=== PATIENT | male | born 1945 | race Caucasian/White ===

== ENCOUNTER 2018-11-29 22:33 | Inpatient (IN) | payer MEDICARE, OTHER ==
[2018-11-29 22:55] LABS: ABNORMAL IP MESSAGE 1; HEMATOCRIT 36.9 % (42.0-52.0); HEMOGLOBIN 11.9 g/dl (14.0-18.0); MEAN CORPUSCULAR HEMOGLOBIN 30.7 pg (29.0-33.0); MEAN CORPUSCULAR HGB CONC 32.2 g/dl (32.0-37.0); MEAN CORPUSCULAR VOLUME 95.1 fl (82.0-101.0); MEAN PLATELET VOLUME 10.9 fl (7.4-10.4); PLATELET COUNT 136 10^3/UL (140-415); POSITIVE DIFF @See below; RED BLOOD COUNT 3.88 10^6/ul (4.70-6.10); RED CELL DISTRIBUTION WIDTH 14.6 % (11.5-14.5)
[2018-11-29 22:55] LABS: WHITE BLOOD COUNT 26.8 10^3/ul (4.8-10.8)
[2018-11-29 22:56] LABS: ADD MAN DIFF? YES
[2018-11-29 23:15] LABS: INR 1.18; PROTIME 15.1 Sec (11.9-14.9); PT RATIO 1.2
[2018-11-29 23:16] LABS: PARTIAL THROMBOPLASTIN TIME 36.9 Sec (23.0-35.0)
[2018-11-29 23:18] LABS: ANION GAP 11 (5-13); BLOOD UREA NITROGEN 29 mg/dl (7-20); CALCIUM 8.9 mg/dl (8.4-10.2); CARBON DIOXIDE 30 mmol/L (21-31); CHLORIDE 95 mmol/L (97-110); CREATININE 3.06 mg/dl (0.61-1.24); GLUCOSE 103 mg/dl (70-220); SODIUM 136 mmol/L (135-144)
[2018-11-29 23:26] LABS: ANISOCYTOSIS 1+ (0-0); BAND NEUTROPHILS #M 3.4 10^3/ul (0.0-0.6); BAND NEUTROPHILS % (M) 13 % (0-4); EOSINOPHILS % (M) 2 % (0-7); GIANT THROMBO% (M) 1 % (0-0); LYMPHOCYTES #M 0.2 10^3/ul (0.8-2.9); LYMPHOCYTES % (M) 1 % (15-51); MONOCYTE #M 0.2 10^3/ul (0.3-0.9); MONOCYTES % (M) 1 % (0-11); PLATELET ESTIMATE DECREASED; POLYCHROMASIA 1+ (0-0); REACTIVE LYMPHOCYTES #M 0.2 10^3/ul (0.0-0.0); REACTIVE LYMPHOCYTES% (M) 1 % (0-0); SEG NEUT #M 22.9 10^3/ul (1.6-7.5); SEGMENTED NEUTROPHILS (M) % 82 % (39-77); TARGET CELLS 1+ (0-0)
[2018-11-29 23:31] LABS: TROPONIN-I 0.134 ng/ml (0.000-0.120)
[2018-11-29 23:41] LABS: AADO2 Arterial 110.7 mmHg (7.0-24.0); Arterial Base Excess 5.4 mmol/L (-3.0-3); Arterial Blood Gas Oxygen Sat 93.7 mmHG (95.0-100.0); Arterial COHb 0.9 % (0.0-3.0); Arterial Fraction of Oxyhgb 92.9 % (93.0-99.0); Arterial HCO3 30.4 mmol/L (22.0-26.0); Arterial MetHb 0 % (0.0-1.5); Arterial pCO2 46.7 mmhg (35-45); MODE NASAL CANNULA; Site Right Brachial
[2018-11-30] MEDS: ASPIRIN 81 MG TAB PO ×2 (00:16→11:17)
[2018-11-30] MEDS: PIPER-TAZO 2.25 GM (PMX) 50 ML IVPB ×4 (00:19→21:07)
[2018-11-30 00:20] LABS: ALANINE AMINOTRANSFERASE 63 IU/L (13-69); ALBUMIN 2.9 g/dl (3.3-4.9); ALKALINE PHOSPHATASE 402 IU/L (42-121); ASPARTATE AMINO TRANSFERASE 127 IU/L (15-46); BILIRUBIN,INDIRECT 0.7 mg/dl (0-1.1); BILIRUBIN,TOTAL 3.8 mg/dl (0.2-1.3); TOTAL PROTEIN 6.3 g/dl (6.1-8.1)
[2018-11-30] MEDS: VANCOMYCIN 1 GM (PMX) 250 ML IVPB (01:05)
[2018-11-30] MEDS: SOD CHLORIDE 0.9% 250 ML IV (02:00)
[2018-11-30] MEDS ORDERED: VANCOMYCIN IV PER PHARMACY XX (02:00)
[2018-11-30] MEDS ORDERED: NACL 0.9% 3 ML SYG IV (02:00)
[2018-11-30 02:51] LABS: LACTIC ACID 1.6 mmol/L (0.5-2.0)
[2018-11-30] MEDS: POTASSIUM CHLORIDE 50 ML IVPB (03:53)
[2018-11-30 05:46] LABS: ABNORMAL IP MESSAGE 1; HEMATOCRIT 33.5 % (42.0-52.0); HEMOGLOBIN 10.7 g/dl (14.0-18.0); MEAN CORPUSCULAR HEMOGLOBIN 30.9 pg (29.0-33.0); MEAN CORPUSCULAR HGB CONC 31.9 g/dl (32.0-37.0); MEAN CORPUSCULAR VOLUME 96.8 fl (82.0-101.0); MEAN PLATELET VOLUME 12.4 fl (7.4-10.4); NUCLEATED RED BLOOD CELLS% 0.1 /100WBC (0.0-0.0); PLATELET COUNT 130 10^3/UL (140-415); POSITIVE DIFF @See below; RED BLOOD COUNT 3.46 10^6/ul (4.70-6.10); RED CELL DISTRIBUTION WIDTH 14.7 % (11.5-14.5)
[2018-11-30 05:46] LABS: WHITE BLOOD COUNT 26.6 10^3/ul (4.8-10.8)
[2018-11-30 05:48] LABS: ADD MAN DIFF? YES
[2018-11-30] MEDS ORDERED: PIPER-TAZO 3.375 GM IV (PMX) 100 ML IVPB (06:00)
[2018-11-30 06:22] LABS: ALANINE AMINOTRANSFERASE 58 IU/L (13-69); ALBUMIN 2.4 g/dl (3.3-4.9); ALBUMIN/GLOBULIN RATIO 0.77; ALKALINE PHOSPHATASE 314 IU/L (42-121); ANION GAP 8 (5-13); ASPARTATE AMINO TRANSFERASE 108 IU/L (15-46); BILIRUBIN,INDIRECT 0.5 mg/dl (0-1.1); BILIRUBIN,TOTAL 3.6 mg/dl (0.2-1.3); BLOOD UREA NITROGEN 33 mg/dl (7-20); CALCIUM 8.5 mg/dl (8.4-10.2); CARBON DIOXIDE 31 mmol/L (21-31); CHLORIDE 97 mmol/L (97-110); CHOL/HDL RATIO 8.2 RATIO; CHOLESTEROL 99 mg/dl (100-200); CREATININE 3.21 mg/dl (0.61-1.24); GLUCOSE 89 mg/dl (70-220); HDL CHOLESTEROL 12 mg/dl (31-75); LDL CHOLESTEROL,CALCULATED 17 mg/dl; MAGNESIUM 2.1 mg/dl (1.7-2.5); POTASSIUM 3.4 mmol/L (3.5-5.1); SODIUM 136 mmol/L (135-144); TOTAL PROTEIN 5.5 g/dl (6.1-8.1); TRIGLYCERIDES 348 mg/dl (0-149)
[2018-11-30 06:23] LABS: LACTIC ACID 1.4 mmol/L (0.5-2.0)
[2018-11-30 06:32] LABS: CK-MB 0.51 ng/ml (0.0-2.4); TROPONIN-I 0.119 ng/ml (0.000-0.120)
[2018-11-30 06:44] LABS: CREATINE KINASE < 20 IU/L (23-200)
[2018-11-30 07:04] LABS: HEMOGLOBIN A1C 4.7 % (0-5.9)
[2018-11-30] MEDS: PANTOPRAZOLE (EC) 40 MG TAB PO (07:06)
[2018-11-30] MEDS: HEPARIN 5,000 UNIT/1 ML VIAL SC ×3 (07:06→21:33)
[2018-11-30] MEDS: HYDROCODONE/APAP (5/325) TAB PO ×2 (07:06→15:16)
[2018-11-30 07:45] LABS: ANISOCYTOSIS 1+ (0-0); BAND NEUTROPHILS #M 4.5 10^3/ul (0.0-0.6); BAND NEUTROPHILS % (M) 17 % (0-4); GIANT THROMBO% (M) 4 % (0-0); LYMPHOCYTES #M 1.5 10^3/ul (0.8-2.9); LYMPHOCYTES % (M) 6 % (15-51); MICROCYTOSIS 1+ (0-0); MONOCYTE #M 0.7 10^3/ul (0.3-0.9); MONOCYTES % (M) 3 % (0-11); PLATELET ESTIMATE DECREASED; POLYCHROMASIA 1+ (0-0); SEG NEUT #M 20.9 10^3/ul (1.6-7.5); SEGMENTED NEUTROPHILS (M) % 74 % (39-77); STOMATOCYTES 1+ (0-0); TARGET CELLS 1+ (0-0)
[2018-11-30] MEDS: NIFEdipine (XL) 60 MG TAB PO ×2 (09:00→21:00)
[2018-11-30 09:04] LABS: PROCALCITONIN 9.65 ng/mL (0.00-0.10)
[2018-11-30 10:03] LABS: CREATINE KINASE < 20 IU/L (23-200)
[2018-11-30 10:11] LABS: CK-MB 0.66 ng/ml (0.0-2.4); TROPONIN-I 0.113 ng/ml (0.000-0.120)
[2018-11-30 10:50] LABS: THYROID STIMULATING HORMONE 0.147 MIU/L (0.465-4.680)
[2018-11-30] MEDS: FOLIC ACID 1 MG TAB PO (11:05)
[2018-11-30] MEDS: FERROUS SULFATE (EC) 325 MG TAB PO ×2 (11:07→21:02)
[2018-11-30] MEDS: POTASSIUM CHLORIDE (SR) 20 MEQ TAB PO (13:17)
[2018-11-30] MEDS ORDERED: GLUCOSE GEL 15 GRAM TUBE BUCCAL (15:30)
[2018-11-30] MEDS ORDERED: GLUCAGON 1 MG INJ IM (15:30)
[2018-11-30] MEDS ORDERED: GLUCOSE GEL 15 GRAM TUBE PO ×2 (15:30)
[2018-11-30] MEDS ORDERED: DEXTROSE 50% 50 ML SYRINGE IV ×2 (15:30)
[2018-11-30] MEDS: INSULIN ASPART [NOVOLOG] 3 ML PEN SC ×2 (17:55→20:58)
[2018-11-30] MEDS: INSULIN GLARGINE [LANTus] (100 UNITS/ML) SYG SC (21:00)
[2018-11-30] MEDS: DOXAZOSIN 4 MG TAB PO (21:00)
[2018-11-30] MEDS: ATORVASTATIN 40 MG TAB PO (21:02)
[2018-11-30] MEDS: ZOLPIDEM 5 MG TAB PO (22:56)
[2018-12-01] MEDS: ACCU-CHEK XX (02:06)
[2018-12-01] MEDS: PANTOPRAZOLE (EC) 40 MG TAB PO (06:01)
[2018-12-01] MEDS: PIPER-TAZO 2.25 GM (PMX) 50 ML IVPB ×3 (06:01→22:02)
[2018-12-01] MEDS: HEPARIN 5,000 UNIT/1 ML VIAL SC ×3 (06:14→22:05)
[2018-12-01 06:31] LABS: WHITE BLOOD COUNT 29.1 10^3/ul (4.8-10.8)
[2018-12-01 06:31] LABS: ABNORMAL IP MESSAGE 1; HEMATOCRIT 32.3 % (42.0-52.0); HEMOGLOBIN 10.4 g/dl (14.0-18.0); MEAN CORPUSCULAR HGB CONC 32.2 g/dl (32.0-37.0); MEAN CORPUSCULAR VOLUME 96.1 fl (82.0-101.0); MEAN PLATELET VOLUME 11.6 fl (7.4-10.4); PLATELET COUNT 137 10^3/UL (140-415); POSITIVE DIFF @See below; RED BLOOD COUNT 3.36 10^6/ul (4.70-6.10); RED CELL DISTRIBUTION WIDTH 14.5 % (11.5-14.5)
[2018-12-01 06:51] LABS: ALANINE AMINOTRANSFERASE 58 IU/L (13-69); ALBUMIN 2.4 g/dl (3.3-4.9); ALBUMIN/GLOBULIN RATIO 0.82; ALKALINE PHOSPHATASE 306 IU/L (42-121); ANION GAP 10 (5-13); ASPARTATE AMINO TRANSFERASE 97 IU/L (15-46); BILIRUBIN,INDIRECT 0.6 mg/dl (0-1.1); BLOOD UREA NITROGEN 43 mg/dl (7-20); CALCIUM 8.8 mg/dl (8.4-10.2); CARBON DIOXIDE 28 mmol/L (21-31); CHLORIDE 97 mmol/L (97-110); CREATININE 4.65 mg/dl (0.61-1.24); GLUCOSE 131 mg/dl (70-220); MAGNESIUM 2.2 mg/dl (1.7-2.5); POTASSIUM 3.8 mmol/L (3.5-5.1); SODIUM 135 mmol/L (135-144); TOTAL PROTEIN 5.3 g/dl (6.1-8.1)
[2018-12-01 06:57] LABS: ADD MAN DIFF? YES
[2018-12-01] MEDS: INSULIN ASPART [NOVOLOG] 3 ML PEN SC ×4 (07:55→21:00)
[2018-12-01] MEDS: NIFEdipine (XL) 60 MG TAB PO ×2 (08:11→21:00)
[2018-12-01] MEDS: FOLIC ACID 1 MG TAB PO (09:00)
[2018-12-01] MEDS: ASPIRIN 81 MG TAB PO (09:00)
[2018-12-01] MEDS: FERROUS SULFATE (EC) 325 MG TAB PO ×2 (09:00→21:00)
[2018-12-01 09:07] LABS: HEPATITIS B SURFACE ANTIGEN NEGATIVE (NEGATIVE)
[2018-12-01 09:25] LABS: HEPATITIS B SURFACE ANTIBODY NEGATIVE (NEGATIVE)
[2018-12-01 09:31] LABS: ANISOCYTOSIS 1+ (0-0); BAND NEUTROPHILS #M 2.3 10^3/ul (0.0-0.6); BAND NEUTROPHILS % (M) 8 % (0-4); GIANT THROMBO% (M) 1 % (0-0); LYMPHOCYTES #M 0.2 10^3/ul (0.8-2.9); LYMPHOCYTES % (M) 1 % (15-51); MONOCYTE #M 0.8 10^3/ul (0.3-0.9); MONOCYTES % (M) 3 % (0-11); PLATELET ESTIMATE DECREASED; POLYCHROMASIA 1+ (0-0); REACTIVE LYMPHOCYTES #M 0.2 10^3/ul (0.0-0.0); REACTIVE LYMPHOCYTES% (M) 1 % (0-0); SEGMENTED NEUTROPHILS (M) % 87 % (39-77)
[2018-12-01] MEDS: EPOETIN ALFA-EPBX (ESRD) 4,000 UNIT/ML VIAL SC (17:52)
[2018-12-01 18:45] LABS: Arterial Base Excess 3.6 mmol/L (-3.0-3); Arterial Blood Gas Oxygen Sat 85.4 mmHG (95.0-100.0); Arterial COHb 0.4 % (0.0-3.0); Arterial Fraction of Oxyhgb 85.1 % (93.0-99.0); Arterial HCO3 28.1 mmol/L (22.0-26.0); Arterial MetHb 0 % (0.0-1.5); Arterial pCO2 41.9 mmhg (35-45); MODE NASAL CANNULA; Site Right Brachial
[2018-12-01] MEDS ORDERED: LEVALBUTEROL (NEB) 1.25 MG/0.5 ML AMP HHN (19:00)
[2018-12-01] MEDS: FUROSEMIDE 40 MG INJ IV (19:02)
[2018-12-01] MEDS: LORAZEPAM 2 MG INJ IV (19:05)
[2018-12-01] MEDS: IPRATROPIUM (NEB) 0.5 MG/2.5 ML AMP HHN (19:54)
[2018-12-01] MEDS: LEVALBUTEROL (NEB) 0.63 MG/3 ML AMP HHN (19:54)
[2018-12-01] MEDS: ATORVASTATIN 40 MG TAB PO (21:00)
[2018-12-01] MEDS: DOXAZOSIN 4 MG TAB PO (21:00)
[2018-12-01] MEDS: INSULIN GLARGINE [LANTus] (100 UNITS/ML) SYG SC (22:04)
[2018-12-01 23:28] LABS: AADO2 Arterial 321.5 mmHg (7.0-24.0); Arterial Base Excess 4.8 mmol/L (-3.0-3); Arterial Blood Gas Oxygen Sat 91.8 mmHG (95.0-100.0); Arterial COHb 0.2 % (0.0-3.0); Arterial Fraction of Oxyhgb 91.5 % (93.0-99.0); Arterial HCO3 28.7 mmol/L (22.0-26.0); Arterial MetHb 0.1 % (0.0-1.5); Arterial pCO2 40.1 mmhg (35-45); MODE HFNC; Site Right Radial
[2018-12-02] MEDS: BALSAM PERU/CASTOR OIL 60 GM TUBE TOP ×3 (00:40→21:02)
[2018-12-02] MEDS: IPRATROPIUM (NEB) 0.5 MG/2.5 ML AMP HHN ×4 (01:32→19:39)
[2018-12-02] MEDS: LEVALBUTEROL (NEB) 0.63 MG/3 ML AMP HHN ×4 (01:32→19:39)
[2018-12-02] MEDS: ACETYLCYSTEINE 20% 4 ML VIAL NEB ×4 (01:32→19:39)
[2018-12-02] MEDS: ACCU-CHEK XX (02:30)
[2018-12-02 05:21] LABS: WHITE BLOOD COUNT 25.4 10^3/ul (4.8-10.8)
[2018-12-02 05:21] LABS: ABNORMAL IP MESSAGE 1; HEMATOCRIT 29.9 % (42.0-52.0); HEMOGLOBIN 9.6 g/dl (14.0-18.0); MEAN CORPUSCULAR HEMOGLOBIN 31.3 pg (29.0-33.0); MEAN CORPUSCULAR HGB CONC 32.1 g/dl (32.0-37.0); MEAN CORPUSCULAR VOLUME 97.4 fl (82.0-101.0); MEAN PLATELET VOLUME 11.4 fl (7.4-10.4); PLATELET COUNT 122 10^3/UL (140-415); POSITIVE DIFF @See below; RED BLOOD COUNT 3.07 10^6/ul (4.70-6.10); RED CELL DISTRIBUTION WIDTH 14.6 % (11.5-14.5)
[2018-12-02 05:24] LABS: ADD MAN DIFF? YES
[2018-12-02 05:58] LABS: VANCOMYCIN,RANDOM 6.9 ug/ml
[2018-12-02] MEDS: PANTOPRAZOLE (EC) 40 MG TAB PO (06:00)
[2018-12-02 06:03] LABS: ALANINE AMINOTRANSFERASE 59 IU/L (13-69); ALBUMIN 2.2 g/dl (3.3-4.9); ALBUMIN/GLOBULIN RATIO 0.73; ALKALINE PHOSPHATASE 354 IU/L (42-121); ANION GAP 8 (5-13); ASPARTATE AMINO TRANSFERASE 125 IU/L (15-46); BILIRUBIN,INDIRECT 0.8 mg/dl (0-1.1); BILIRUBIN,TOTAL 5.6 mg/dl (0.2-1.3); BLOOD UREA NITROGEN 26 mg/dl (7-20); CALCIUM 8.9 mg/dl (8.4-10.2); CARBON DIOXIDE 30 mmol/L (21-31); CHLORIDE 104 mmol/L (97-110); CREATININE 3.42 mg/dl (0.61-1.24); GLUCOSE 94 mg/dl (70-220); SODIUM 142 mmol/L (135-144); TOTAL PROTEIN 5.2 g/dl (6.1-8.1)
[2018-12-02] MEDS: PIPER-TAZO 2.25 GM (PMX) 50 ML IVPB ×2 (06:09→13:51)
[2018-12-02] MEDS: HEPARIN 5,000 UNIT/1 ML VIAL SC ×3 (06:10→21:16)
[2018-12-02] MEDS ORDERED: ETOMIDATE 20 MG INJ (07:00)
[2018-12-02] MEDS ORDERED: SUCCINYLCHOLINE CHLORIDE 100 MG/5 ML SYG IV (07:00)
[2018-12-02] MEDS: INSULIN ASPART [NOVOLOG] 3 ML PEN SC ×3 (07:55→21:00)
[2018-12-02 08:01] LABS: ANISOCYTOSIS 1+ (0-0); BAND NEUTROPHILS #M 0.5 10^3/ul (0.0-0.6); BAND NEUTROPHILS % (M) 2 % (0-4); EOSINOPHILS % (M) 2 % (0-7); GIANT THROMBO% (M) 1 % (0-0); LYMPHOCYTES #M 0.7 10^3/ul (0.8-2.9); LYMPHOCYTES % (M) 3 % (15-51); MONOCYTE #M 0.5 10^3/ul (0.3-0.9); MONOCYTES % (M) 2 % (0-11); PLATELET ESTIMATE DECREASED; REACTIVE LYMPHOCYTES #M 0.2 10^3/ul (0.0-0.0); REACTIVE LYMPHOCYTES% (M) 1 % (0-0); SEGMENTED NEUTROPHILS (M) % 90 % (39-77); SMUDGE%M 4 % (0-0)
[2018-12-02] MEDS: ASPIRIN 81 MG TAB PO (09:00)
[2018-12-02] MEDS: FOLIC ACID 1 MG TAB PO (09:00)
[2018-12-02] MEDS: NIFEdipine (XL) 60 MG TAB PO (09:00)
[2018-12-02] MEDS: FERROUS SULFATE (EC) 325 MG TAB PO ×2 (09:00→21:00)
[2018-12-02] MEDS: FUROSEMIDE 40 MG INJ IV (09:41)
[2018-12-02 12:22] LABS: HAAIG REFLEX REFLEX FILED
[2018-12-02 12:40] LABS: LACTIC ACID 1.8 mmol/L (0.5-2.0); LIPASE 75 U/L (23-300)
[2018-12-02 13:13] LABS: HEPATITIS B SURFACE ANTIGEN NEGATIVE (NEGATIVE)
[2018-12-02 13:31] LABS: HEPATITIS B CORE ANTIBODY NEGATIVE (NEGATIVE); HEPATITIS C VIRAL ANTIBODY NEGATIVE (NEGATIVE)
[2018-12-02] MEDS: HYDROCODONE/APAP (5/325) TAB PO (13:40)
[2018-12-02] MEDS: VANCOMYCIN 1 GM 250 ML IVPB (14:25)
[2018-12-02 15:22] LABS: AADO2 Arterial 284.9 mmHg (7.0-24.0); Allen Test ACCEPTAB; Arterial Base Excess 5.7 mmol/L (-3.0-3); Arterial Blood Gas Oxygen Sat 89.4 mmHG (95.0-100.0); Arterial COHb 0.3 % (0.0-3.0); Arterial HCO3 30.4 mmol/L (22.0-26.0); Arterial MetHb 0.1 % (0.0-1.5); Arterial pCO2 45.3 mmhg (35-45); MODE HFNC; Site Left Radial
[2018-12-02] MEDS ORDERED: FENTAnyl 50 MCG/ML VIAL (17:16)
[2018-12-02] MEDS ORDERED: ALBUMIN HUMAN 25% 100 ML (17:37)
[2018-12-02] MEDS: AZITHROMYCIN 250 MG in SOD CHLORIDE 0.9% 250 ML IVPB (18:19)
[2018-12-02] MEDS: FENTAnyl (DRIP) 1000 mcg/100mL 100 ML IV (18:20)
[2018-12-02] MEDS: FENTAnyl 50 MCG/ML VIAL IV (18:21)
[2018-12-02] MEDS: ALBUMIN HUMAN 25% 100 ML IV (18:22)
[2018-12-02] MEDS: PROPOFOL 100 ML IV ×2 (18:27→22:45)
[2018-12-02 18:45] LABS: AADO2 Arterial 365.9 mmHg (7.0-24.0); Allen Test ACCEPTAB; Arterial Base Excess 4.2 mmol/L (-3.0-3); Arterial Blood Gas Oxygen Sat 96.6 mmHG (95.0-100.0); Arterial COHb 0.3 % (0.0-3.0); Arterial Fraction of Oxyhgb 96.2 % (93.0-99.0); Arterial HCO3 28.3 mmol/L (22.0-26.0); Arterial MetHb 0.1 % (0.0-1.5); Arterial pCO2 40.2 mmhg (35-45); MODE VENT - AC; Site Right Radial
[2018-12-02] MEDS: ALBUTEROL HFA 8 GM INHALER INH (20:00)
[2018-12-02] MEDS: IPRATROPIUM (HFA) 12.9 GM INHALER INH (20:00)
[2018-12-02] MEDS ORDERED: FAMOTIDINE 20 MG INJ IV (20:30)
[2018-12-02] MEDS: DOXAZOSIN 4 MG TAB PO (21:00)
[2018-12-02] MEDS: ATORVASTATIN 40 MG TAB PO (21:00)
[2018-12-02] MEDS ORDERED: MEROPENEM 1 GM/50ML(PMX) 50 ML IVPB (21:00)
[2018-12-02] MEDS: NORepinephrine 8MG/250 ML (PMX 250 ML IV (21:06)
[2018-12-02] MEDS: MEROPENEM 500MG/50 ML (PMX) 50 ML IVPB (21:15)
[2018-12-03] MEDS: INSULIN ASPART [NOVOLOG] 3 ML PEN SC ×6 (01:00→21:00)
[2018-12-03] MEDS: IPRATROPIUM (HFA) 12.9 GM INHALER INH ×4 (01:20→20:19)
[2018-12-03] MEDS: ALBUTEROL HFA 8 GM INHALER INH ×4 (01:20→20:18)
[2018-12-03] MEDS: ACETYLCYSTEINE 20% 4 ML VIAL NEB ×4 (01:20→20:18)
[2018-12-03] MEDS ORDERED: FAMOTIDINE 20 MG INJ (01:21)
[2018-12-03 04:39] LABS: AADO2 Arterial 238.4 mmHg (7.0-24.0); Allen Test ACCEPTAB; Arterial Base Excess 1.2 mmol/L (-3.0-3); Arterial Blood Gas Oxygen Sat 95.3 mmHG (95.0-100.0); Arterial COHb 0.1 % (0.0-3.0); Arterial Fraction of Oxyhgb 95.1 % (93.0-99.0); Arterial HCO3 24.6 mmol/L (22.0-26.0); Arterial MetHb 0.1 % (0.0-1.5); Arterial pCO2 34.2 mmhg (35-45); MODE VENT - AC; Site Right Radial
[2018-12-03] MEDS: VASOPRESSIN 60 UNIT in DEXTROSE 5% 57 ML IV ×2 (04:54→14:21)
[2018-12-03] MEDS: MEROPENEM 500MG/50 ML (PMX) 50 ML IVPB ×2 (04:55→17:57)
[2018-12-03] MEDS: FAMOTIDINE 20 MG INJ IV (05:01)
[2018-12-03] MEDS: HEPARIN 5,000 UNIT/1 ML VIAL SC ×3 (05:03→21:42)
[2018-12-03 05:23] LABS: ABNORMAL IP MESSAGE 1; HEMOGLOBIN 9.4 g/dl (14.0-18.0); MEAN CORPUSCULAR HEMOGLOBIN 31.6 pg (29.0-33.0); MEAN CORPUSCULAR HGB CONC 32.4 g/dl (32.0-37.0); MEAN CORPUSCULAR VOLUME 97.6 fl (82.0-101.0); NUCLEATED RED BLOOD CELLS% 0.1 /100WBC (0.0-0.0); PLATELET COUNT 113 10^3/UL (140-415); POSITIVE DIFF @See below; RED BLOOD COUNT 2.97 10^6/ul (4.70-6.10); RED CELL DISTRIBUTION WIDTH 14.7 % (11.5-14.5)
[2018-12-03 05:23] LABS: WHITE BLOOD COUNT 25.7 10^3/ul (4.8-10.8)
[2018-12-03 05:24] LABS: ADD MAN DIFF? YES
[2018-12-03 05:39] LABS: LACTIC ACID 1.8 mmol/L (0.5-2.0)
[2018-12-03 05:47] LABS: ALANINE AMINOTRANSFERASE 54 IU/L (13-69); ALBUMIN 2.2 g/dl (3.3-4.9); ALBUMIN/GLOBULIN RATIO 0.78; ALKALINE PHOSPHATASE 264 IU/L (42-121); ANION GAP 12 (5-13); ASPARTATE AMINO TRANSFERASE 105 IU/L (15-46); BILIRUBIN,TOTAL 6.9 mg/dl (0.2-1.3); BLOOD UREA NITROGEN 37 mg/dl (7-20); CALCIUM 8.9 mg/dl (8.4-10.2); CARBON DIOXIDE 25 mmol/L (21-31); CHLORIDE 105 mmol/L (97-110); CREATININE 4.34 mg/dl (0.61-1.24); GLUCOSE 64 mg/dl (70-220); POTASSIUM 3.9 mmol/L (3.5-5.1); SODIUM 142 mmol/L (135-144)
[2018-12-03] MEDS ORDERED: PANTOPRAZOLE 40 MG INJ IV (06:00)
[2018-12-03] MEDS: PROPOFOL 100 ML IV ×2 (06:23→19:19)
[2018-12-03] MEDS: NORepinephrine 8MG/250 ML (PMX 250 ML IV ×3 (06:25→21:45)
[2018-12-03 07:27] LABS: ANISOCYTOSIS 1+ (0-0); BAND NEUTROPHILS % (M) 8 % (0-4); BASOPHIL #M 0.2 10^3/ul (0.0-0.0); BASOPHILS % (M) 1 % (0-2); BURR CELLS 1+ (0-0); EOSINOPHILS % (M) 4 % (0-7); GIANT THROMBO% (M) 9 % (0-0); LYMPHOCYTES #M 2.8 10^3/ul (0.8-2.9); LYMPHOCYTES % (M) 11 % (15-51); PLATELET ESTIMATE DECREASED; POIKILOCYTOSIS 1+ (0-0); POLYCHROMASIA 1+ (0-0); SEGMENTED NEUTROPHILS (M) % 76 % (39-77); SMUDGE%M 9 % (0-0)
[2018-12-03] MEDS: ASPIRIN 81 MG TAB PO (08:05)
[2018-12-03] MEDS: ACETAMINOPHEN 325 MG TAB PO (08:05)
[2018-12-03] MEDS: FOLIC ACID 1 MG TAB PO (08:05)
[2018-12-03] MEDS: FERROUS SULFATE (EC) 325 MG TAB PO ×2 (08:05→21:40)
[2018-12-03] MEDS: BALSAM PERU/CASTOR OIL 60 GM TUBE TOP ×2 (08:06→21:41)
[2018-12-03] MEDS: ALBUMIN HUMAN 25% 100 ML IV (09:35)
[2018-12-03] MEDS: FENTAnyl (DRIP) 1000 mcg/100mL 100 ML IV (10:41)
[2018-12-03] MEDS: CASPOFUNGIN 70 MG in SOD CHLORIDE 0.9% 250 ML IVPB (14:36)
[2018-12-03] MEDS: AZITHROMYCIN 250 MG in SOD CHLORIDE 0.9% 250 ML IVPB (16:44)
[2018-12-03] MEDS: DOXAZOSIN 4 MG TAB PO (21:00)
[2018-12-03] MEDS: ATORVASTATIN 40 MG TAB PO (21:40)
[2018-12-04] MEDS: INSULIN ASPART [NOVOLOG] 3 ML PEN SC ×6 (01:00→20:45)
[2018-12-04] MEDS: IPRATROPIUM (HFA) 12.9 GM INHALER INH ×4 (01:41→19:34)
[2018-12-04] MEDS: ALBUTEROL HFA 8 GM INHALER INH ×4 (01:41→19:35)
[2018-12-04] MEDS: ACETYLCYSTEINE 20% 4 ML VIAL NEB ×4 (01:41→19:35)
[2018-12-04] MEDS: PROPOFOL 100 ML IV ×2 (03:33→14:44)
[2018-12-04] MEDS: FENTAnyl (DRIP) 1000 mcg/100mL 100 ML IV (03:34)
[2018-12-04] MEDS: VASOPRESSIN 60 UNIT in DEXTROSE 5% 57 ML IV ×2 (03:39→14:30)
[2018-12-04] MEDS: METOCLOPRAMIDE 10 MG INJ IV ×2 (03:43→15:21)
[2018-12-04] MEDS: MEROPENEM 500MG/50 ML (PMX) 50 ML IVPB ×2 (05:33→18:15)
[2018-12-04] MEDS: NORepinephrine 8MG/250 ML (PMX 250 ML IV ×3 (05:33→21:15)
[2018-12-04] MEDS: FAMOTIDINE 20 MG INJ IV (05:33)
[2018-12-04] MEDS: HEPARIN 5,000 UNIT/1 ML VIAL SC ×3 (05:34→20:46)
[2018-12-04 05:49] LABS: ABNORMAL IP MESSAGE 1; HEMATOCRIT 29.5 % (42.0-52.0); HEMOGLOBIN 9.4 g/dl (14.0-18.0); MEAN CORPUSCULAR HEMOGLOBIN 31.9 pg (29.0-33.0); MEAN CORPUSCULAR HGB CONC 31.9 g/dl (32.0-37.0); MEAN PLATELET VOLUME 11.7 fl (7.4-10.4); NUCLEATED RED BLOOD CELLS% 0.2 /100WBC (0.0-0.0); PLATELET COUNT 86 10^3/UL (140-415); POSITIVE DIFF @See below; RED BLOOD COUNT 2.95 10^6/ul (4.70-6.10); RED CELL DISTRIBUTION WIDTH 14.7 % (11.5-14.5)
[2018-12-04 05:49] LABS: WHITE BLOOD COUNT 24.6 10^3/ul (4.8-10.8)
[2018-12-04 05:54] LABS: ADD MAN DIFF? YES
[2018-12-04 06:26] LABS: ANION GAP 12 (5-13); BLOOD UREA NITROGEN 24 mg/dl (7-20); CALCIUM 9.3 mg/dl (8.4-10.2); CARBON DIOXIDE 25 mmol/L (21-31); CHLORIDE 104 mmol/L (97-110); GLUCOSE 80 mg/dl (70-220); MAGNESIUM 2.1 mg/dl (1.7-2.5); PHOSPHORUS 3.9 mg/dl (2.5-4.9); POTASSIUM 4.1 mmol/L (3.5-5.1); SODIUM 141 mmol/L (135-144)
[2018-12-04] MEDS: BALSAM PERU/CASTOR OIL 60 GM TUBE TOP ×2 (08:01→20:42)
[2018-12-04] MEDS: ASPIRIN 81 MG TAB PO (08:02)
[2018-12-04] MEDS: FERROUS SULFATE (EC) 325 MG TAB PO ×2 (08:02→20:42)
[2018-12-04] MEDS: FOLIC ACID 1 MG TAB PO (08:02)
[2018-12-04 08:12] LABS: Allen Test ACCEPTAB; Arterial Base Excess -0.3 mmol/L (-3.0-3); Arterial Blood Gas Oxygen Sat 92.1 mmHG (95.0-100.0); Arterial COHb 0.3 % (0.0-3.0); Arterial Fraction of Oxyhgb 91.8 % (93.0-99.0); Arterial HCO3 24.8 mmol/L (22.0-26.0); Arterial MetHb 0 % (0.0-1.5); Arterial pCO2 42.5 mmhg (35-45); MODE VENT - AC; Site Right Radial
[2018-12-04 09:25] LABS: ANISOCYTOSIS 2+ (0-0); BAND NEUTROPHILS #M 0.9 10^3/ul (0.0-0.6); BAND NEUTROPHILS % (M) 4 % (0-4); BASOPHIL #M 0.4 10^3/ul (0.0-0.0); BASOPHILS % (M) 2 % (0-2); BURR CELLS 1+ (0-0); EOSINOPHILS % (M) 5 % (0-7); LYMPHOCYTES #M 0.4 10^3/ul (0.8-2.9); LYMPHOCYTES % (M) 2 % (15-51); MONOCYTE #M 0.2 10^3/ul (0.3-0.9); MONOCYTES % (M) 1 % (0-11); PLATELET ESTIMATE DECREASED; POIKILOCYTOSIS 3+ (0-0); POLYCHROMASIA 3+ (0-0); SEG NEUT #M 21.4 10^3/ul (1.6-7.5); SEGMENTED NEUTROPHILS (M) % 86 % (39-77); SMUDGE%M 17 % (0-0)
[2018-12-04] MEDS: AMIODARONE 150MG/D5W BOLUS 100 ML IV (10:28)
[2018-12-04] MEDS ORDERED: AMIODARONE 150MG/D5W BOLUS 100 ML IV (10:30)
[2018-12-04] MEDS: AMIODARONE 900 MG in DEXTROSE 5% 482 ML IV (11:32)
[2018-12-04 13:18] LABS: ALANINE AMINOTRANSFERASE 46 IU/L (13-69); ALBUMIN 2.6 g/dl (3.3-4.9); ALKALINE PHOSPHATASE 234 IU/L (42-121); ASPARTATE AMINO TRANSFERASE 109 IU/L (15-46); BILIRUBIN,INDIRECT 0.9 mg/dl (0-1.1); BILIRUBIN,TOTAL 7.3 mg/dl (0.2-1.3); TOTAL PROTEIN 5.8 g/dl (6.1-8.1)
[2018-12-04 13:20] LABS: INR 1.41; PROTIME 17.4 Sec (11.9-14.9); PT RATIO 1.4
[2018-12-04] MEDS: CASPOFUNGIN 35 MG in SOD CHLORIDE 0.9% 250 ML IVPB (15:20)
[2018-12-04] MEDS ORDERED: LACTULOSE 30ML CUP PO (18:30)
[2018-12-04] MEDS: EPOETIN ALFA-EPBX (ESRD) 4,000 UNIT/ML VIAL SC (20:38)
[2018-12-04] MEDS: ATORVASTATIN 40 MG TAB PO (20:42)
[2018-12-04] MEDS: DOCUSATE SODIUM 10 MG/ML (10ML CUP) NGT (20:42)
[2018-12-04] MEDS: COLLAGENASE 5 GM (UD JAR) TOP (20:42)
[2018-12-05] MEDS: PROPOFOL 100 ML IV ×2 (00:27→23:00)
[2018-12-05] MEDS: INSULIN ASPART [NOVOLOG] 3 ML PEN SC ×6 (00:33→20:53)
[2018-12-05] MEDS: FENTAnyl (DRIP) 1000 mcg/100mL 100 ML IV ×2 (00:34→21:11)
[2018-12-05] MEDS: IPRATROPIUM (HFA) 12.9 GM INHALER INH ×4 (01:42→19:43)
[2018-12-05] MEDS: ALBUTEROL HFA 8 GM INHALER INH ×4 (01:42→19:43)
[2018-12-05] MEDS: ACETYLCYSTEINE 20% 4 ML VIAL NEB (01:43)
[2018-12-05] MEDS: VASOPRESSIN 60 UNIT in DEXTROSE 5% 57 ML IV ×2 (02:30→05:05)
[2018-12-05] MEDS: NORepinephrine 8MG/250 ML (PMX 250 ML IV ×3 (04:05→21:50)
[2018-12-05] MEDS: MEROPENEM 500MG/50 ML (PMX) 50 ML IVPB ×2 (04:57→17:59)
[2018-12-05] MEDS: FAMOTIDINE 20 MG INJ IV (05:05)
[2018-12-05] MEDS: HEPARIN 5,000 UNIT/1 ML VIAL SC ×3 (05:10→21:01)
[2018-12-05 05:12] LABS: ADD MAN DIFF? NO
[2018-12-05 05:16] LABS: ABNORMAL IP MESSAGE 1; BASOPHIL # 0.3 10^3/ul (0.0-0.1); BASOPHILS % 1.2 % (0.0-2.0); EOSINOPHILS # 0.6 10^3/ul (0.0-0.5); EOSINOPHILS % 2.8 % (0.0-7.0); HEMATOCRIT 29.2 % (42.0-52.0); HEMOGLOBIN 9.3 g/dl (14.0-18.0); LYMPHOCYTES # 1.9 10^3/ul (0.8-2.9); LYMPHOCYTES % 8.2 % (15.0-51.0); MEAN CORPUSCULAR HEMOGLOBIN 31.7 pg (29.0-33.0); MEAN CORPUSCULAR HGB CONC 31.8 g/dl (32.0-37.0); MEAN CORPUSCULAR VOLUME 99.7 fl (82.0-101.0); MEAN PLATELET VOLUME 12.7 fl (7.4-10.4); MONOCYTE # 0.8 10^3/ul (0.3-0.9); MONOCYTES % 3.4 % (0.0-11.0); NEUTROPHIL # 18.6 10^3/ul (1.6-7.5); NEUTROPHILS % 81.4 % (39.0-77.0); NUCLEATED RED BLOOD CELLS # 0.1 10^3/ul (0.0-0.0); NUCLEATED RED BLOOD CELLS% 0.3 /100WBC (0.0-0.0); PLATELET COUNT 93 10^3/UL (140-415); POSITIVE DIFF @See below; RED BLOOD COUNT 2.93 10^6/ul (4.70-6.10); RED CELL DISTRIBUTION WIDTH 15.1 % (11.5-14.5)
[2018-12-05 05:16] LABS: WHITE BLOOD COUNT 22.8 10^3/ul (4.8-10.8)
[2018-12-05 05:49] LABS: AMMONIA 34 umol/l (9-30)
[2018-12-05 05:59] LABS: VANCOMYCIN,RANDOM 8.3 ug/ml
[2018-12-05 06:08] LABS: ANION GAP 12 (5-13); BLOOD UREA NITROGEN 33 mg/dl (7-20); CALCIUM 8.9 mg/dl (8.4-10.2); CARBON DIOXIDE 23 mmol/L (21-31); CHLORIDE 103 mmol/L (97-110); GLUCOSE 152 mg/dl (70-220); POTASSIUM 4.7 mmol/L (3.5-5.1); SODIUM 138 mmol/L (135-144)
[2018-12-05 06:15] LABS: CREATININE 4.15 mg/dl (0.61-1.24)
[2018-12-05] MEDS: COLLAGENASE 5 GM (UD JAR) TOP ×2 (08:17→20:53)
[2018-12-05] MEDS: FERROUS SULFATE (EC) 325 MG TAB PO ×2 (08:17→20:52)
[2018-12-05] MEDS: ASPIRIN 81 MG TAB PO (08:17)
[2018-12-05] MEDS: FOLIC ACID 1 MG TAB PO (08:17)
[2018-12-05] MEDS: DOCUSATE SODIUM 10 MG/ML (10ML CUP) NGT ×2 (08:17→20:52)
[2018-12-05] MEDS: BALSAM PERU/CASTOR OIL 60 GM TUBE TOP ×2 (08:17→20:54)
[2018-12-05] MEDS: ACETAMINOPHEN 325 MG TAB PO (08:28)
[2018-12-05] MEDS: METOCLOPRAMIDE 10 MG INJ IV ×3 (08:40→20:52)
[2018-12-05] MEDS: DEXMEDETOMIDINE HCL 200 MCG in SOD CHLORIDE 0.9% 48 ML IV ×2 (10:04→18:02)
[2018-12-05] MEDS ORDERED: ALBUMIN HUMAN 25% 100 ML (11:05)
[2018-12-05] MEDS: ALBUMIN HUMAN 25% 100 ML IV (11:21)
[2018-12-05 13:22] LABS: MITOCHONDRIAL TB NEGATIVE (NEGATIVE); SMOOTH MUSCLE AB SCREEN NEGATIVE (NEGATIVE)
[2018-12-05 13:26] LABS: Allen Test ACCEPTAB
[2018-12-05] MEDS: AMIODARONE 200 MG TAB PO ×2 (14:18→20:53)
[2018-12-05] MEDS: CASPOFUNGIN 35 MG in SOD CHLORIDE 0.9% 250 ML IVPB (15:40)
[2018-12-05] MEDS: metroNIDAZOLE 500 MG/NS (PMX) 100 ML IVPB ×2 (17:00→21:08)
[2018-12-05] MEDS: VANCOMYCIN HCL 1.25 GM in SOD CHLORIDE 0.9% 250 ML IVPB (17:59)
[2018-12-05 19:37] LABS: ANA SCREEN POSITIVE (NEGATIVE)
[2018-12-05] MEDS: ATORVASTATIN 40 MG TAB PO (20:53)
[2018-12-06] MEDS: INSULIN ASPART [NOVOLOG] 3 ML PEN SC ×6 (01:00→20:16)
[2018-12-06] MEDS: METOCLOPRAMIDE 10 MG INJ IV ×4 (01:15→20:10)
[2018-12-06] MEDS: IPRATROPIUM (HFA) 12.9 GM INHALER INH ×4 (01:37→19:47)
[2018-12-06] MEDS: ALBUTEROL HFA 8 GM INHALER INH ×4 (01:37→19:47)
[2018-12-06] MEDS: VASOPRESSIN 60 UNIT in DEXTROSE 5% 57 ML IV ×2 (02:30→14:30)
[2018-12-06] MEDS: metroNIDAZOLE 500 MG/NS (PMX) 100 ML IVPB ×3 (02:58→14:58)
[2018-12-06] MEDS: MEROPENEM 500MG/50 ML (PMX) 50 ML IVPB ×2 (05:28→18:05)
[2018-12-06] MEDS: FAMOTIDINE 20 MG INJ IV (05:29)
[2018-12-06] MEDS: HEPARIN 5,000 UNIT/1 ML VIAL SC (05:29)
[2018-12-06 05:56] LABS: ABNORMAL IP MESSAGE 1; HEMATOCRIT 25.8 % (42.0-52.0); HEMOGLOBIN 8.1 g/dl (14.0-18.0); MEAN CORPUSCULAR HEMOGLOBIN 31.4 pg (29.0-33.0); MEAN CORPUSCULAR HGB CONC 31.4 g/dl (32.0-37.0); MEAN PLATELET VOLUME 12.3 fl (7.4-10.4); NUCLEATED RED BLOOD CELLS% 0.1 /100WBC (0.0-0.0); PLATELET COUNT 71 10^3/UL (140-415); POSITIVE DIFF @See below; RED BLOOD COUNT 2.58 10^6/ul (4.70-6.10); RED CELL DISTRIBUTION WIDTH 14.9 % (11.5-14.5)
[2018-12-06 05:56] LABS: WHITE BLOOD COUNT 18.5 10^3/ul (4.8-10.8)
[2018-12-06 06:14] LABS: ADD MAN DIFF? YES
[2018-12-06 06:31] LABS: ANION GAP 10 (5-13)
[2018-12-06 06:32] LABS: BLOOD UREA NITROGEN 24 mg/dl (7-20); CARBON DIOXIDE 25 mmol/L (21-31); CHLORIDE 104 mmol/L (97-110); CREATININE 3.03 mg/dl (0.61-1.24); GLUCOSE 132 mg/dl (70-220); POTASSIUM 4.1 mmol/L (3.5-5.1); SODIUM 139 mmol/L (135-144)
[2018-12-06 06:33] LABS: CALCIUM 8.6 mg/dl (8.4-10.2)
[2018-12-06] MEDS: DEXMEDETOMIDINE HCL 200 MCG in SOD CHLORIDE 0.9% 48 ML IV (06:46)
[2018-12-06] MEDS: NORepinephrine 8MG/250 ML (PMX 250 ML IV ×2 (06:47→13:46)
[2018-12-06 08:51] LABS: ANISOCYTOSIS 2+ (0-0); BAND NEUTROPHILS #M 0.5 10^3/ul (0.0-0.6); BAND NEUTROPHILS % (M) 3 % (0-4); BASOPHIL #M 0.3 10^3/ul (0.0-0.0); BASOPHILS % (M) 2 % (0-2); BURR CELLS 1+ (0-0); EOSINOPHILS % (M) 5 % (0-7); GIANT THROMBO% (M) 2 % (0-0); LYMPHOCYTES #M 0.9 10^3/ul (0.8-2.9); LYMPHOCYTES % (M) 5 % (15-51); MONOCYTE #M 0.7 10^3/ul (0.3-0.9); MONOCYTES % (M) 4 % (0-11); MYELOCYTES #M 0.3 10^3/ul (0.0-0.0); MYELOCYTES % (M) 2 % (0-0); PLATELET ESTIMATE DECREASED; POIKILOCYTOSIS 2+ (0-0); POLYCHROMASIA 1+ (0-0); SEG NEUT #M 14.7 10^3/ul (1.6-7.5); SEGMENTED NEUTROPHILS (M) % 79 % (39-77); SPHEROCYTES 1+ (0-0)
[2018-12-06 09:31] LABS: ALANINE AMINOTRANSFERASE 44 IU/L (13-69); ALBUMIN 2.3 g/dl (3.3-4.9); ALKALINE PHOSPHATASE 225 IU/L (42-121); ASPARTATE AMINO TRANSFERASE 124 IU/L (15-46); BILIRUBIN,INDIRECT 0.9 mg/dl (0-1.1); BILIRUBIN,TOTAL 6.7 mg/dl (0.2-1.3); TOTAL PROTEIN 4.9 g/dl (6.1-8.1)
[2018-12-06] MEDS: LACTULOSE 30ML CUP PO ×2 (09:38→20:10)
[2018-12-06] MEDS: AMIODARONE 200 MG TAB PO ×3 (09:39→20:11)
[2018-12-06] MEDS: ASPIRIN 81 MG TAB PO (09:40)
[2018-12-06] MEDS: DOCUSATE SODIUM 10 MG/ML (10ML CUP) NGT ×2 (09:40→20:10)
[2018-12-06] MEDS: FOLIC ACID 1 MG TAB PO (09:41)
[2018-12-06] MEDS: FERROUS SULFATE (EC) 325 MG TAB PO ×2 (09:41→20:11)
[2018-12-06] MEDS: COLLAGENASE 5 GM (UD JAR) TOP ×2 (09:51→20:11)
[2018-12-06] MEDS: BALSAM PERU/CASTOR OIL 60 GM TUBE TOP ×2 (09:52→20:11)
[2018-12-06] MEDS: PROPOFOL 100 ML IV ×2 (11:00→22:27)
[2018-12-06] MEDS: CASPOFUNGIN 35 MG in SOD CHLORIDE 0.9% 250 ML IVPB (15:45)
[2018-12-06] MEDS: EPOETIN ALFA-EPBX (ESRD) 4,000 UNIT/ML VIAL SC (18:05)
[2018-12-06] MEDS: MINERAL OIL 133 ML ENEMA PR (18:26)
[2018-12-06] MEDS: ATORVASTATIN 40 MG TAB PO (20:11)
[2018-12-06 21:13] LABS: ANA PATTERN HOMOGENEOUS
[2018-12-07] MEDS: INSULIN ASPART [NOVOLOG] 3 ML PEN SC ×6 (00:28→20:53)
[2018-12-07] MEDS: METOCLOPRAMIDE 10 MG INJ IV ×4 (00:29→17:23)
[2018-12-07] MEDS: NORepinephrine 8MG/250 ML (PMX 250 ML IV ×3 (00:31→21:31)
[2018-12-07] MEDS: ALBUTEROL HFA 8 GM INHALER INH ×4 (01:46→20:03)
[2018-12-07] MEDS: IPRATROPIUM (HFA) 12.9 GM INHALER INH ×4 (01:46→20:03)
[2018-12-07] MEDS: VASOPRESSIN 60 UNIT in DEXTROSE 5% 57 ML IV ×2 (02:30→14:30)
[2018-12-07 05:05] LABS: ADD MAN DIFF? NO
[2018-12-07 05:10] LABS: ABNORMAL IP MESSAGE 1; BASOPHIL # 0.3 10^3/ul (0.0-0.1); BASOPHILS % 1.3 % (0.0-2.0); EOSINOPHILS # 0.7 10^3/ul (0.0-0.5); HEMATOCRIT 26.4 % (42.0-52.0); HEMOGLOBIN 8.3 g/dl (14.0-18.0); LYMPHOCYTES # 1.3 10^3/ul (0.8-2.9); LYMPHOCYTES % 5.8 % (15.0-51.0); MEAN CORPUSCULAR HEMOGLOBIN 31.1 pg (29.0-33.0); MEAN CORPUSCULAR HGB CONC 31.4 g/dl (32.0-37.0); MEAN CORPUSCULAR VOLUME 98.9 fl (82.0-101.0); MEAN PLATELET VOLUME 13.2 fl (7.4-10.4); MONOCYTE # 0.8 10^3/ul (0.3-0.9); MONOCYTES % 3.5 % (0.0-11.0); NEUTROPHIL # 18.3 10^3/ul (1.6-7.5); NEUTROPHILS % 84.3 % (39.0-77.0); NUCLEATED RED BLOOD CELLS% 0.1 /100WBC (0.0-0.0); PLATELET COUNT 80 10^3/UL (140-415); POSITIVE DIFF @See below; RED BLOOD COUNT 2.67 10^6/ul (4.70-6.10); RED CELL DISTRIBUTION WIDTH 15.8 % (11.5-14.5)
[2018-12-07 05:10] LABS: WHITE BLOOD COUNT 21.8 10^3/ul (4.8-10.8)
[2018-12-07 05:26] LABS: ALANINE AMINOTRANSFERASE 38 IU/L (13-69); ALBUMIN 2.1 g/dl (3.3-4.9); ALKALINE PHOSPHATASE 202 IU/L (42-121); ASPARTATE AMINO TRANSFERASE 137 IU/L (15-46); BILIRUBIN,INDIRECT 0.8 mg/dl (0-1.1); BILIRUBIN,TOTAL 6.6 mg/dl (0.2-1.3)
[2018-12-07] MEDS: metroNIDAZOLE 500 MG/NS (PMX) 100 ML IVPB (05:27)
[2018-12-07] MEDS: MEROPENEM 500MG/50 ML (PMX) 50 ML IVPB ×2 (05:27→17:19)
[2018-12-07] MEDS: FAMOTIDINE 20 MG INJ IV (05:27)
[2018-12-07 05:37] LABS: ANION GAP 9 (5-13); BLOOD UREA NITROGEN 31 mg/dl (7-20); CALCIUM 8.1 mg/dl (8.4-10.2); CARBON DIOXIDE 25 mmol/L (21-31); CHLORIDE 106 mmol/L (97-110); GLUCOSE 126 mg/dl (70-220); POTASSIUM 4.3 mmol/L (3.5-5.1); SODIUM 140 mmol/L (135-144)
[2018-12-07 05:46] LABS: CREATININE 3.86 mg/dl (0.61-1.24)
[2018-12-07 08:02] LABS: ANISOCYTOSIS 2+ (0-0); BAND NEUTROPHILS #M 0.6 10^3/ul (0.0-0.6); BAND NEUTROPHILS % (M) 3 % (0-4); BASOPHIL #M 0.4 10^3/ul (0.0-0.0); BASOPHILS % (M) 2 % (0-2); EOSINOPHILS % (M) 4 % (0-7); GIANT THROMBO% (M) 3 % (0-0); LYMPHOCYTES #M 1.3 10^3/ul (0.8-2.9); LYMPHOCYTES % (M) 6 % (15-51); MONOCYTE #M 0.2 10^3/ul (0.3-0.9); MONOCYTES % (M) 1 % (0-11); PLATELET ESTIMATE DECREASED; POIKILOCYTOSIS 2+ (0-0); POLYCHROMASIA 1+ (0-0); PROMYELOCYTES #M 0.2 10^3/ul (0-0); PROMYELOCYTES % (M) 1 % (0-0); REACTIVE LYMPHOCYTES #M 0.2 10^3/ul (0.0-0.0); REACTIVE LYMPHOCYTES% (M) 1 % (0-0); SEGMENTED NEUTROPHILS (M) % 82 % (39-77); SMUDGE%M 19 % (0-0)
[2018-12-07] MEDS: AMIODARONE 200 MG TAB PO ×4 (09:00→20:50)
[2018-12-07] MEDS: ASPIRIN 81 MG TAB PO (10:39)
[2018-12-07] MEDS: LACTULOSE 30ML CUP PO ×2 (10:39→20:50)
[2018-12-07] MEDS: COLLAGENASE 5 GM (UD JAR) TOP ×2 (10:40→20:52)
[2018-12-07] MEDS: FERROUS SULFATE (EC) 325 MG TAB PO ×2 (10:40→20:50)
[2018-12-07] MEDS: DOCUSATE SODIUM 10 MG/ML (10ML CUP) NGT ×2 (10:40→20:50)
[2018-12-07] MEDS: FOLIC ACID 1 MG TAB PO (10:40)
[2018-12-07] MEDS: BALSAM PERU/CASTOR OIL 60 GM TUBE TOP ×2 (10:47→20:51)
[2018-12-07] MEDS: PROPOFOL 100 ML IV ×2 (11:00→23:00)
[2018-12-07] MEDS: AMIODARONE 150MG/D5W BOLUS 100 ML IV (13:10)
[2018-12-07] MEDS: CASPOFUNGIN 35 MG in SOD CHLORIDE 0.9% 250 ML IVPB (17:19)
[2018-12-07] MEDS: ATORVASTATIN 40 MG TAB PO (20:50)
[2018-12-07] MEDS: ALBUMIN HUMAN 25% 100 ML IV (23:33)
[2018-12-08] MEDS: METOCLOPRAMIDE 10 MG INJ IV ×4 (00:40→17:33)
[2018-12-08] MEDS: INSULIN ASPART [NOVOLOG] 3 ML PEN SC ×6 (00:42→20:32)
[2018-12-08] MEDS: ALBUTEROL HFA 8 GM INHALER INH ×3 (01:36→13:36)
[2018-12-08] MEDS: IPRATROPIUM (HFA) 12.9 GM INHALER INH ×4 (01:36→19:32)
[2018-12-08] MEDS: VASOPRESSIN 60 UNIT in DEXTROSE 5% 57 ML IV ×2 (02:26→12:49)
[2018-12-08] MEDS: AMIODARONE 150MG/D5W BOLUS 100 ML IV (02:43)
[2018-12-08] MEDS: NORepinephrine 8MG/250 ML (PMX 250 ML IV ×3 (02:48→21:05)
[2018-12-08] MEDS: AMIODARONE 900 MG in DEXTROSE 5% 482 ML IV (02:54)
[2018-12-08] MEDS: FAMOTIDINE 20 MG INJ IV (05:23)
[2018-12-08] MEDS: MEROPENEM 500MG/50 ML (PMX) 50 ML IVPB (05:24)
[2018-12-08 05:36] LABS: ADD MAN DIFF? NO
[2018-12-08 05:38] LABS: ABNORMAL IP MESSAGE 1; BASOPHIL # 0.2 10^3/ul (0.0-0.1); BASOPHILS % 1.1 % (0.0-2.0); EOSINOPHILS # 0.5 10^3/ul (0.0-0.5); EOSINOPHILS % 2.6 % (0.0-7.0); HEMATOCRIT 26.4 % (42.0-52.0); HEMOGLOBIN 8.6 g/dl (14.0-18.0); LYMPHOCYTES # 1.6 10^3/ul (0.8-2.9); MEAN CORPUSCULAR HEMOGLOBIN 32.1 pg (29.0-33.0); MEAN CORPUSCULAR HGB CONC 32.6 g/dl (32.0-37.0); MEAN CORPUSCULAR VOLUME 98.5 fl (82.0-101.0); MEAN PLATELET VOLUME 13.1 fl (7.4-10.4); MONOCYTE # 0.8 10^3/ul (0.3-0.9); MONOCYTES % 4.1 % (0.0-11.0); NEUTROPHIL # 16.2 10^3/ul (1.6-7.5); NEUTROPHILS % 82.6 % (39.0-77.0); NUCLEATED RED BLOOD CELLS # 0.1 10^3/ul (0.0-0.0); NUCLEATED RED BLOOD CELLS% 0.3 /100WBC (0.0-0.0); PLATELET COUNT 83 10^3/UL (140-415); POSITIVE DIFF @See below; RED BLOOD COUNT 2.68 10^6/ul (4.70-6.10); RED CELL DISTRIBUTION WIDTH 17.2 % (11.5-14.5)
[2018-12-08 05:38] LABS: WHITE BLOOD COUNT 19.6 10^3/ul (4.8-10.8)
[2018-12-08 06:33] LABS: PHOSPHORUS 3.5 mg/dl (2.5-4.9)
[2018-12-08 06:33] LABS: MAGNESIUM 2.2 mg/dl (1.7-2.5)
[2018-12-08 06:37] LABS: ANION GAP 12 (5-13); BLOOD UREA NITROGEN 21 mg/dl (7-20); CALCIUM 8.8 mg/dl (8.4-10.2); CARBON DIOXIDE 26 mmol/L (21-31); CHLORIDE 104 mmol/L (97-110); CREATININE 2.88 mg/dl (0.61-1.24); GLUCOSE 124 mg/dl (70-220); POTASSIUM 4.1 mmol/L (3.5-5.1); SODIUM 142 mmol/L (135-144)
[2018-12-08 06:56] LABS: VANCOMYCIN,RANDOM 12.7 ug/ml
[2018-12-08 07:47] LABS: ANISOCYTOSIS 2+ (0-0); BAND NEUTROPHILS #M 0.1 10^3/ul (0.0-0.6); BAND NEUTROPHILS % (M) 1 % (0-4); BASOPHIL #M 0.1 10^3/ul (0.0-0.0); BASOPHILS % (M) 1 % (0-2); BURR CELLS 1+ (0-0); EOSINOPHILS % (M) 1 % (0-7); ERYTHROBLAST% (NRBC) (M) 2 % (0-0); LYMPHOCYTES #M 1.1 10^3/ul (0.8-2.9); LYMPHOCYTES % (M) 6 % (15-51); MONOCYTE #M 0.7 10^3/ul (0.3-0.9); MONOCYTES % (M) 4 % (0-11); PLATELET ESTIMATE DECREASED; POIKILOCYTOSIS 1+ (0-0); POLYCHROMASIA 1+ (0-0); SEG NEUT #M 17.1 10^3/ul (1.6-7.5); SEGMENTED NEUTROPHILS (M) % 87 % (39-77); SMUDGE%M 30 % (0-0)
[2018-12-08 08:00] LABS: AADO2 Arterial 375.3 mmHg (7.0-24.0); Arterial Base Excess 1.9 mmol/L (-3.0-3); Arterial COHb 0.1 % (0.0-3.0); Arterial Fraction of Oxyhgb 94.6 % (93.0-99.0); Arterial HCO3 26.2 mmol/L (22.0-26.0); Arterial MetHb 0.3 % (0.0-1.5); Arterial pCO2 39.9 mmhg (35-45); MODE VENT - AC; Site Right Brachial
[2018-12-08] MEDS: DOCUSATE SODIUM 10 MG/ML (10ML CUP) NGT ×2 (09:53→20:26)
[2018-12-08] MEDS: FOLIC ACID 1 MG TAB PO (09:54)
[2018-12-08] MEDS: AMIODARONE 200 MG TAB PO ×2 (09:54→13:52)
[2018-12-08] MEDS: FERROUS SULFATE (EC) 325 MG TAB PO ×2 (09:54→20:25)
[2018-12-08] MEDS: COLLAGENASE 5 GM (UD JAR) TOP ×2 (09:54→20:25)
[2018-12-08] MEDS: ASPIRIN 81 MG TAB PO (09:54)
[2018-12-08] MEDS: BALSAM PERU/CASTOR OIL 60 GM TUBE TOP ×2 (09:54→20:26)
[2018-12-08] MEDS: LACTULOSE 30ML CUP PO ×2 (09:55→20:25)
[2018-12-08] MEDS: HEPARIN 5,000 UNIT/1 ML VIAL SC (09:57)
[2018-12-08] MEDS: PROPOFOL 100 ML IV ×2 (10:07→22:07)
[2018-12-08 10:14] LABS: ALANINE AMINOTRANSFERASE 36 IU/L (13-69); ALBUMIN 2.7 g/dl (3.3-4.9); ALKALINE PHOSPHATASE 213 IU/L (42-121); ASPARTATE AMINO TRANSFERASE 147 IU/L (15-46)
[2018-12-08 10:15] LABS: TOTAL PROTEIN 5.7 g/dl (6.1-8.1)
[2018-12-08 11:02] LABS: NIL 0.02 IU/mL; QUANTIFERON(R)-TB GOLD NEGATIVE (NEGATIVE); TB-NIL 0.09 IU/mL; TB2-NIL 0.13 IU/mL
[2018-12-08] MEDS ORDERED: AMIKACIN IV PER PHARMACY XX (11:30)
[2018-12-08] MEDS: metroNIDAZOLE 500 MG/NS (PMX) 100 ML IVPB ×2 (13:51→21:59)
[2018-12-08] MEDS: DOCUSATE SODIUM 100 MG CAP PO (13:52)
[2018-12-08] MEDS: BISACODYL (EC) 5 MG TAB PO (13:52)
[2018-12-08] MEDS: AMIKACIN IVPB (13:58)
[2018-12-08] MEDS: SOD CHLORIDE 0.9% IVPB (13:58)
[2018-12-08] MEDS: CASPOFUNGIN 35 MG in SOD CHLORIDE 0.9% 250 ML IVPB (15:15)
[2018-12-08] MEDS: VANCOMYCIN HCL 1.25 GM in SOD CHLORIDE 0.9% 250 ML IVPB (17:32)
[2018-12-08] MEDS: EPOETIN ALFA-EPBX (ESRD) 4,000 UNIT/ML VIAL SC (17:34)
[2018-12-08] MEDS: ATORVASTATIN 40 MG TAB PO (20:25)
[2018-12-09] MEDS: INSULIN ASPART [NOVOLOG] 3 ML PEN SC ×6 (00:33→20:41)
[2018-12-09] MEDS: METOCLOPRAMIDE 10 MG INJ IV ×4 (00:33→16:40)
[2018-12-09] MEDS: IPRATROPIUM (HFA) 12.9 GM INHALER INH ×4 (01:37→19:38)
[2018-12-09] MEDS: VASOPRESSIN 60 UNIT in DEXTROSE 5% 57 ML IV ×2 (02:30→13:12)
[2018-12-09] MEDS: NORepinephrine 8MG/250 ML (PMX 250 ML IV ×5 (02:53→23:25)
[2018-12-09] MEDS: metroNIDAZOLE 500 MG/NS (PMX) 100 ML IVPB ×3 (05:16→22:01)
[2018-12-09] MEDS: FAMOTIDINE 20 MG INJ IV (05:16)
[2018-12-09 05:19] LABS: HEMATOCRIT 27.6 % (42.0-52.0); HEMOGLOBIN 8.8 g/dl (14.0-18.0); MEAN CORPUSCULAR HEMOGLOBIN 31.8 pg (29.0-33.0); MEAN CORPUSCULAR HGB CONC 31.9 g/dl (32.0-37.0); MEAN CORPUSCULAR VOLUME 99.6 fl (82.0-101.0); MEAN PLATELET VOLUME 12.4 fl (7.4-10.4); NUCLEATED RED BLOOD CELLS% 0.2 /100WBC (0.0-0.0); PLATELET COUNT 100 10^3/UL (140-415); POSITIVE DIFF @See below; RED BLOOD COUNT 2.77 10^6/ul (4.70-6.10); RED CELL DISTRIBUTION WIDTH 18.1 % (11.5-14.5)
[2018-12-09 05:19] LABS: WHITE BLOOD COUNT 21.4 10^3/ul (4.8-10.8)
[2018-12-09 05:31] LABS: ADD MAN DIFF? YES
[2018-12-09 05:59] LABS: ALANINE AMINOTRANSFERASE 32 IU/L (13-69); ALBUMIN 2.3 g/dl (3.3-4.9); ALKALINE PHOSPHATASE 189 IU/L (42-121); ASPARTATE AMINO TRANSFERASE 139 IU/L (15-46); BILIRUBIN,INDIRECT 0.8 mg/dl (0-1.1); BILIRUBIN,TOTAL 6.1 mg/dl (0.2-1.3); TOTAL PROTEIN 5.1 g/dl (6.1-8.1)
[2018-12-09 06:05] LABS: ANION GAP 11 (5-13); BLOOD UREA NITROGEN 25 mg/dl (7-20); CALCIUM 8.5 mg/dl (8.4-10.2); CARBON DIOXIDE 24 mmol/L (21-31); CHLORIDE 106 mmol/L (97-110); CREATININE 3.88 mg/dl (0.61-1.24); GLUCOSE 142 mg/dl (70-220); POTASSIUM 4.1 mmol/L (3.5-5.1); SODIUM 141 mmol/L (135-144)
[2018-12-09] MEDS: FERROUS SULFATE (EC) 325 MG TAB PO ×2 (08:17→20:41)
[2018-12-09] MEDS: DOCUSATE SODIUM 10 MG/ML (10ML CUP) NGT ×2 (08:17→20:41)
[2018-12-09] MEDS: FOLIC ACID 1 MG TAB PO (08:17)
[2018-12-09] MEDS: BALSAM PERU/CASTOR OIL 60 GM TUBE TOP ×2 (08:18→20:41)
[2018-12-09] MEDS: COLLAGENASE 5 GM (UD JAR) TOP ×2 (08:18→20:41)
[2018-12-09] MEDS: PROPOFOL 100 ML IV ×2 (08:22→23:00)
[2018-12-09] MEDS: ASPIRIN 81 MG TAB PO (08:32)
[2018-12-09] MEDS: LACTULOSE 30ML CUP PO ×2 (08:32→20:41)
[2018-12-09] MEDS ORDERED: AMIKACIN 375 MG in SOD CHLORIDE 0.9% 100 ML IVPB (09:00)
[2018-12-09 10:39] LABS: ANISOCYTOSIS 3+ (0-0); BAND NEUTROPHILS #M 0.4 10^3/ul (0.0-0.6); BAND NEUTROPHILS % (M) 2 % (0-4); EOSINOPHILS % (M) 2 % (0-7); GIANT THROMBO% (M) 1 % (0-0); LYMPHOCYTES #M 2.3 10^3/ul (0.8-2.9); LYMPHOCYTES % (M) 11 % (15-51); MICROCYTOSIS 3+ (0-0); MONOCYTE #M 0.6 10^3/ul (0.3-0.9); MONOCYTES % (M) 3 % (0-11); PLATELET ESTIMATE DECREASED; POIKILOCYTOSIS 3+ (0-0); POLYCHROMASIA 3+ (0-0); SEG NEUT #M 17.6 10^3/ul (1.6-7.5); SEGMENTED NEUTROPHILS (M) % 82 % (39-77); SMUDGE%M 8 % (0-0)
[2018-12-09] MEDS: CASPOFUNGIN 35 MG in SOD CHLORIDE 0.9% 250 ML IVPB (16:40)
[2018-12-09] MEDS: PHENYLephrine 20MG IN 250 ML 250 ML IV (19:55)
[2018-12-09] MEDS: ATORVASTATIN 40 MG TAB PO (20:41)
[2018-12-10] MEDS: INSULIN ASPART [NOVOLOG] 3 ML PEN SC ×6 (01:00→20:30)
[2018-12-10] MEDS: METOCLOPRAMIDE 10 MG INJ IV ×5 (01:39→23:31)
[2018-12-10] MEDS: IPRATROPIUM (HFA) 12.9 GM INHALER INH ×4 (01:41→19:37)
[2018-12-10] MEDS: VASOPRESSIN 60 UNIT in DEXTROSE 5% 57 ML IV ×3 (02:30→20:58)
[2018-12-10] MEDS: PHENYLephrine 20MG IN 250 ML 250 ML IV ×3 (02:33→08:12)
[2018-12-10] MEDS: NORepinephrine 8MG/250 ML (PMX 250 ML IV (04:16)
[2018-12-10] MEDS: metroNIDAZOLE 500 MG/NS (PMX) 100 ML IVPB ×3 (06:04→22:07)
[2018-12-10] MEDS: FAMOTIDINE 20 MG INJ IV (06:04)
[2018-12-10 06:16] LABS: WHITE BLOOD COUNT 20.7 10^3/ul (4.8-10.8)
[2018-12-10 06:16] LABS: HEMATOCRIT 27.7 % (42.0-52.0); HEMOGLOBIN 8.7 g/dl (14.0-18.0); MEAN CORPUSCULAR HEMOGLOBIN 31.2 pg (29.0-33.0); MEAN CORPUSCULAR HGB CONC 31.4 g/dl (32.0-37.0); MEAN CORPUSCULAR VOLUME 99.3 fl (82.0-101.0); MEAN PLATELET VOLUME 12.8 fl (7.4-10.4); NUCLEATED RED BLOOD CELLS% 0.3 /100WBC (0.0-0.0); PLATELET COUNT 106 10^3/UL (140-415); POSITIVE DIFF @See below; RED BLOOD COUNT 2.79 10^6/ul (4.70-6.10); RED CELL DISTRIBUTION WIDTH 18.3 % (11.5-14.5)
[2018-12-10 06:37] LABS: ALANINE AMINOTRANSFERASE 31 IU/L (13-69); ALKALINE PHOSPHATASE 173 IU/L (42-121); ASPARTATE AMINO TRANSFERASE 135 IU/L (15-46); BILIRUBIN,INDIRECT 0.7 mg/dl (0-1.1); BILIRUBIN,TOTAL 5.6 mg/dl (0.2-1.3)
[2018-12-10 06:45] LABS: BLOOD UREA NITROGEN 31 mg/dl (7-20); CARBON DIOXIDE 21 mmol/L (21-31); CHLORIDE 109 mmol/L (97-110); CREATININE 4.48 mg/dl (0.61-1.24); GLUCOSE 119 mg/dl (70-220); POTASSIUM 4.6 mmol/L (3.5-5.1)
[2018-12-10 06:46] LABS: ADD MAN DIFF? YES
[2018-12-10 07:41] LABS: ANION GAP 11 (5-13); SODIUM 141 mmol/L (135-144)
[2018-12-10] MEDS: ASPIRIN 81 MG TAB PO (09:08)
[2018-12-10] MEDS: FOLIC ACID 1 MG TAB PO (09:08)
[2018-12-10] MEDS: LACTULOSE 30ML CUP PO ×2 (09:08→20:28)
[2018-12-10] MEDS: DOCUSATE SODIUM 10 MG/ML (10ML CUP) NGT ×2 (09:08→20:28)
[2018-12-10] MEDS: COLLAGENASE 5 GM (UD JAR) TOP ×2 (09:09→20:28)
[2018-12-10] MEDS: BALSAM PERU/CASTOR OIL 60 GM TUBE TOP ×2 (09:21→20:29)
[2018-12-10] MEDS: FERROUS SULFATE 60 MG/ML 5ML CUP NGT ×2 (09:22→20:28)
[2018-12-10 10:10] LABS: ANISOCYTOSIS 2+ (0-0); BAND NEUTROPHILS #M 0.4 10^3/ul (0.0-0.6); BAND NEUTROPHILS % (M) 2 % (0-4); EOSINOPHILS % (M) 3 % (0-7); ERYTHROBLAST% (NRBC) (M) 2 % (0-0); LYMPHOCYTES #M 1.2 10^3/ul (0.8-2.9); LYMPHOCYTES % (M) 6 % (15-51); MICROCYTOSIS 1+ (0-0); MONOCYTES % (M) 5 % (0-11); PLATELET ESTIMATE DECREASED; POIKILOCYTOSIS 2+ (0-0); POLYCHROMASIA 1+ (0-0); SEG NEUT #M 17.5 10^3/ul (1.6-7.5); SEGMENTED NEUTROPHILS (M) % 84 % (39-77); SMUDGE%M 1 % (0-0); TARGET CELLS 1+ (0-0)
[2018-12-10] MEDS: NORepinephrine 32 MG in DEXTROSE 5% 218 ML IV (10:17)
[2018-12-10] MEDS: PHENYLephrine 80 MG in DEXTROSE 5% 242 ML IV ×3 (10:18→23:06)
[2018-12-10] MEDS ORDERED: DOCUSATE SODIUM 10 MG/ML (10ML CUP) NGT (11:30)
[2018-12-10] MEDS ORDERED: BISACODYL 10 MG SUPP PR (11:30)
[2018-12-10] MEDS: AMIODARONE 900 MG in DEXTROSE 5% 482 ML IV (11:38)
[2018-12-10] MEDS: CASPOFUNGIN 35 MG in SOD CHLORIDE 0.9% 250 ML IVPB (15:41)
[2018-12-10] MEDS: ATORVASTATIN 40 MG TAB PO (20:28)
[2018-12-10] MEDS: HEPARIN 5,000 UNIT/1 ML VIAL SC (20:30)
[2018-12-10 22:49] LABS: AADO2 Arterial 216.3 mmHg (7.0-24.0); Allen Test ACCEPTAB; Arterial Base Excess -11.2 mmol/L (-3.0-3); Arterial Blood Gas Oxygen Sat 92.6 mmHG (95.0-100.0); Arterial COHb 0.2 % (0.0-3.0); Arterial Fraction of Oxyhgb 92.1 % (93.0-99.0); Arterial HCO3 12.9 mmol/L (22.0-26.0); Arterial MetHb 0.3 % (0.0-1.5); Arterial pCO2 23.9 mmhg (35-45); MODE VENT - AC; Site Right Radial
[2018-12-10] MEDS: LORAZEPAM 2 MG INJ IV (22:51)
[2018-12-11] MEDS: INSULIN ASPART [NOVOLOG] 3 ML PEN SC ×4 (01:19→12:19)
[2018-12-11] MEDS: ACCU-CHEK XX (01:19)
[2018-12-11] MEDS: IPRATROPIUM (HFA) 12.9 GM INHALER INH ×2 (01:26→08:58)
[2018-12-11] MEDS: PHENYLephrine 80 MG in DEXTROSE 5% 242 ML IV ×3 (03:35→13:27)
[2018-12-11] MEDS: FAMOTIDINE 20 MG INJ IV (05:38)
[2018-12-11] MEDS: metroNIDAZOLE 500 MG/NS (PMX) 100 ML IVPB ×2 (05:39→13:29)
[2018-12-11] MEDS: METOCLOPRAMIDE 10 MG INJ IV ×2 (05:39→12:09)
[2018-12-11 06:38] LABS: AMMONIA 24 umol/l (9-30)
[2018-12-11 06:41] LABS: LACTIC ACID 5.3 mmol/L (0.5-2.0)
[2018-12-11 06:50] LABS: ANION GAP 14 (5-13); BLOOD UREA NITROGEN 34 mg/dl (7-20); CALCIUM 6.9 mg/dl (8.4-10.2); CARBON DIOXIDE 16 mmol/L (21-31); CHLORIDE 107 mmol/L (97-110); GLUCOSE 164 mg/dl (70-220); MAGNESIUM 2.2 mg/dl (1.7-2.5); PHOSPHORUS 6.3 mg/dl (2.5-4.9); POTASSIUM 5.2 mmol/L (3.5-5.1); SODIUM 137 mmol/L (135-144)
[2018-12-11 06:58] LABS: ABNORMAL IP MESSAGE 1; HEMATOCRIT 28.2 % (42.0-52.0); HEMOGLOBIN 8.6 g/dl (14.0-18.0); MEAN CORPUSCULAR HGB CONC 30.5 g/dl (32.0-37.0); MEAN CORPUSCULAR VOLUME 104.8 fl (82.0-101.0); MEAN PLATELET VOLUME 13.1 fl (7.4-10.4); NUCLEATED RED BLOOD CELLS% 0.4 /100WBC (0.0-0.0); PLATELET COUNT 104 10^3/UL (140-415); POSITIVE DIFF @See below; RED BLOOD COUNT 2.69 10^6/ul (4.70-6.10); RED CELL DISTRIBUTION WIDTH 18.4 % (11.5-14.5)
[2018-12-11 06:58] LABS: WHITE BLOOD COUNT 26.1 10^3/ul (4.8-10.8)
[2018-12-11 07:10] LABS: ADD MAN DIFF? YES
[2018-12-11 07:18] LABS: CREATININE 4.81 mg/dl (0.61-1.24)
[2018-12-11 08:39] LABS: AADO2 Arterial 247.6 mmHg (7.0-24.0); Allen Test ACCEPTAB; Arterial Base Excess -9.8 mmol/L (-3.0-3); Arterial Blood Gas Oxygen Sat 92.2 mmHG (95.0-100.0); Arterial COHb 0.2 % (0.0-3.0); Arterial Fraction of Oxyhgb 91.7 % (93.0-99.0); Arterial HCO3 14.9 mmol/L (22.0-26.0); Arterial MetHb 0.3 % (0.0-1.5); Arterial pCO2 28.9 mmhg (35-45); MODE VENT - AC; Site Right Radial
[2018-12-11] MEDS: ASPIRIN 81 MG TAB PO (08:51)
[2018-12-11] MEDS: FOLIC ACID 1 MG TAB PO (08:51)
[2018-12-11] MEDS: LACTULOSE 30ML CUP PO (08:51)
[2018-12-11] MEDS: FERROUS SULFATE 60 MG/ML 5ML CUP NGT (08:51)
[2018-12-11] MEDS: HEPARIN 5,000 UNIT/1 ML VIAL SC (08:59)
[2018-12-11] MEDS: COLLAGENASE 5 GM (UD JAR) TOP (09:01)
[2018-12-11] MEDS: BALSAM PERU/CASTOR OIL 60 GM TUBE TOP (09:01)
[2018-12-11] MEDS: DOCUSATE SODIUM 10 MG/ML (10ML CUP) NGT (09:11)
[2018-12-11 09:52] LABS: ANISOCYTOSIS 2+ (0-0); BAND NEUTROPHILS #M 1.3 10^3/ul (0.0-0.6); BAND NEUTROPHILS % (M) 5 % (0-4); LYMPHOCYTES #M 2.8 10^3/ul (0.8-2.9); LYMPHOCYTES % (M) 11 % (15-51); MONOCYTE #M 1.5 10^3/ul (0.3-0.9); MONOCYTES % (M) 6 % (0-11); PLATELET ESTIMATE NORMAL; POIKILOCYTOSIS 2+ (0-0); POLYCHROMASIA 3+ (0-0); SEG NEUT #M 20.7 10^3/ul (1.6-7.5); SEGMENTED NEUTROPHILS (M) % 78 % (39-77); SMUDGE%M 7 % (0-0)
[2018-12-11] MEDS: VASOPRESSIN 60 UNIT in DEXTROSE 5% 57 ML IV (12:06)
[2018-12-11] MEDS: ALBUMIN HUMAN 25% 100 ML IV ×2 (12:48→13:31)
[2018-12-11] MEDS ORDERED: SODIUM BICARBONATE (IV ADD) 50 MEQ in DEXTROSE 5% 1,000 ML IV (13:00)
[2018-12-11] MEDS: HYDROCORTISONE 100 MG INJ IV (13:29)
[2018-12-11] MEDS: NA BICARBONATE 8.4% 50 ML SYG IV (13:37)
[2018-12-11] MEDS: morphine (DRIP) 100 MG/100 ML 100 ML IV (15:30)
[2018-12-11] MEDS: LORAZEPAM 2 MG INJ IV (16:02)
[2018-12-11] MEDS ORDERED: ATROPINE 1% 3.5 GM OPH OINT BOTH EYES (16:30)
== END 2018-12-11 16:25 | disposition expired | DRG 870 ==
LOC: TEL 11-30 00:07 → E/R 22:33 → ICU 12-02 16:42
PROC: 5A1D70Z Performance of Urinary Filtration, Intermittent, Less than 6 Hours Per Day (ICD-10-PCS; principal; 2018-12-01)
PROC: 02H633Z Insertion of Infusion Device into Right Atrium, Percutaneous Approach (ICD-10-PCS; 2018-12-02)
PROC: 0BH17EZ Insertion of Endotracheal Airway into Trachea, Via Natural or Artificial Opening (ICD-10-PCS; 2018-12-02)
PROC: 5A1955Z Respiratory Ventilation, Greater than 96 Consecutive Hours (ICD-10-PCS; 2018-12-02)
DX: A41.9 Sepsis, unspecified organism (principal); J18.9 Pneumonia, unspecified organism; J96.01 Acute respiratory failure with hypoxia; J96.02 Acute respiratory failure with hypercapnia; I21.A1 Myocardial infarction type 2; N18.6 End stage renal disease; G92 Toxic encephalopathy; R65.21 Severe sepsis with septic shock; I13.2 Hypertensive heart and chronic kidney disease with heart failure and with stage 5 chronic kidney disease, or end stage renal disease; D63.1 Anemia in chronic kidney disease; E87.6 Hypokalemia; E11.22 Type 2 diabetes mellitus with diabetic chronic kidney disease; E78.5 Hyperlipidemia, unspecified; I50.9 Heart failure, unspecified; I48.0 Paroxysmal atrial fibrillation; I25.10 Atherosclerotic heart disease of native coronary artery without angina pectoris; K74.60 Unspecified cirrhosis of liver; K80.20 Calculus of gallbladder without cholecystitis without obstruction; K52.9 Noninfective gastroenteritis and colitis, unspecified; M54.42 Lumbago with sciatica, left side; Z95.1 Presence of aortocoronary bypass graft; Z99.2 Dependence on renal dialysis; Z51.5 Encounter for palliative care; Z91.81 History of falling; Z87.891 Personal history of nicotine dependence; Z79.4 Long term (current) use of insulin; Z79.82 Long term (current) use of aspirin
CPT/HCPCS: 31500; 36415; 36600; 70450; 71045; 71250; 74018; 74176; 76705; 80048; 80053; 80061; 80076; 80202; 82140; 82306; 82533; 82550; 82553; 82803; 82962; 83036; 83605; 83690; 83735; 84100; 84145; 84443; 84484; 85025; 85610; 85730; 86038; 86255; 86480; 86635; 86704; 86706; 86709; 86803; 87040-91; 87070; 87081; 87340; 89220; 90935; 93005; 93306; 93308; 94002; 94003; 94640; 94664; 94667; 94668; 94770; 99285-25